=== PATIENT | female | born 1970 | race Caucasian/White ===

== ENCOUNTER 2017-08-31 13:49 | Emergency (ER) | payer OTHER ==
[~2017-08-31] VITALS: Ht 157.5 cm; Wt 58.0 kg
[2017-08-31] VITALS (7 sets, daily range): BP systolic 123–172; BP diastolic 74–104; PULSE 80–86; RESP 17–20; TEMP 98.8–99.7; O2SAT 97–98
[~2017-08-31 13:49] MED LIST: AMOX500T2 PO; CLON.5 PO; CYCL-36 PO; DARV PO; FLUO20SO3 PO; GABA250S PO
[2017-08-31] MEDS ORDERED: SODIUM CHLORIDE 0.9% FLUSH 10 ML FLUSH IVF PRN (14:30)
--- NOTE | 2017-08-31 14:34 | PD ---
HPI Chief Complaint: Hypertension Time Seen by Provider: 14:01 Travel History International Travel<30 days: No Contact w/Intl Traveler<30days: No Traveled to known affect area: No History of Present Illness HPI Patient 47-year-old female presents to emergency department with a burning sensation all of her body started this morning, she states that she took her blood pressure sometime after that noticed significantly elevated, she had been on blood pressure in the past but has been taken off and does not have any prescription at this time. She appears fairly anxious and has a fairly positive review of systems including chest pain shortness of breath nausea without vomiting, diarrhea, headaches. States symptoms started just prior to arrival, severe according to her, waxing and waning, context as above PFSH Past Medical History Autoimmune Disease: Yes (Lupus) Anxiety: Yes Cerebrovascular Accident: Yes (2006) Diabetes: Yes Patient Takes Glucophage: No Diminished Hearing: No Hypertension: Yes Tetanus Vaccination: Unknown Influenza Vaccination: No ?: Not LMP: CURRENTLY SPOTTING Tubal Ligation: Yes Past Surgical History Section: Yes (times 4) Gynecologic Surgery: Yes (right ovary removal) Neurologic Surgery: Yes (fibromyalgia) Tonsillectomy: Yes Other Surgery: Yes (breast augmentation) Social History Alcohol Use: Yes (1-2 drinks weekly) Tobacco Use: No Substance Use: No Allergies-Medications (Allergen,Severity, Reaction): Coded Allergies: metoclopramide (Verified Allergy, Intermediate, "MADE ME FLIP OUT", 08/31/17 ) morphine (Unverified Allergy, Unknown, SICK, 08/31/17) Reported Meds & Prescriptions Reported Meds & Active Scripts Active Review of Systems Except as stated in HPI: all other systems reviewed are Neg Physical Exam Narrative GENERAL: Well-developed anxious but in no obvious distress. SKIN: Focused skin assessment warm/dry. HEAD: Atraumatic. Normocephalic. EYES: Pupils equal and round. No scleral icterus. No injection or drainage. ENT: No nasal bleeding or discharge. Mucous membranes pink and moist. NECK: Trachea midline. No JVD. CARDIOVASCULAR: Regular rate and rhythm. No murmur appreciated. RESPIRATORY: No accessory muscle use. Clear to auscultation. Breath sounds equal bilaterally. GASTROINTESTINAL: Abdomen soft, non-tender, nondistended. Hepatic and splenic margins not palpable. MUSCULOSKELETAL: No obvious deformities. No clubbing. No cyanosis. No edema. NEUROLOGICAL: Awake and alert. No obvious cranial nerve deficits. Motor grossly within normal limits. Normal speech. PSYCHIATRIC: Appropriate mood and affect; insight and judgment normal. Data Data Last Documented VS Vital Signs Date Time Temp Pulse Resp B/P (MAP) Pulse Ox O2 Delivery O2 Flow Rate FiO2 08/31/17 17:10 79 18 126/78 (94) 98 08/31/17 16:40 Room Air 08/31/17 15:23 98.8 Orders Orders Electrocardiogram (08/31/17 14:20) Complete Blood Count With Diff (08/31/17 14:20) Comprehensive Metabolic Panel (08/31/17 14:20) Magnesium (Mg) (08/31/17 14:20) Troponin I (08/31/17 14:20) Chest, Single Ap (08/31/17 14:20) Ecg Monitoring (08/31/17 14:20) Iv Access Insert/Monitor (08/31/17 14:20) Oximetry (08/31/17 14:20) Oxygen Administration (08/31/17 14:20) Sodium Chloride 0.9% Flush (Ns Flush) (08/31/17 14:30) Thyroid Stimulating Hormone (08/31/17 14:20) Lorazepam (Ativan) (08/31/17 15:00) Ed Discharge Order (08/31/17 15:51) Labs Laboratory Tests Test 08/31/17 14:40 White Blood Count 7.1 TH/MM3 Red Blood Count 4.70 MIL/MM3 Hemoglobin 14.7 GM/DL Hematocrit 45.5 % Mean Corpuscular Volume 96.9 FL Mean Corpuscular Hemoglobin 31.3 PG Mean Corpuscular Hemoglobin Concent 32.3 % Red Cell Distribution Width 12.1 % Platelet Count 409 TH/MM3 Mean Platelet Volume 6.4 FL Neutrophils (%) (Auto) 61.9 % Lymphocytes (%) (Auto) 29.3 % Monocytes (%) (Auto) 6.3 % Eosinophils (%) (Auto) 0.8 % Basophils (%) (Auto) 1.7 % Neutrophils # (Auto) 4.4 TH/MM3 Lymphocytes # (Auto) 2.1 TH/MM3 Monocytes # (Auto) 0.4 TH/MM3 Eosinophils # (Auto) 0.1 TH/MM3 Basophils # (Auto) 0.1 TH/MM3 CBC Comment DIFF FINAL Differential Comment Blood Urea Nitrogen 10 MG/DL Creatinine 0.65 MG/DL Random Glucose 101 MG/DL Total Protein 8.9 GM/DL Albumin 4.3 GM/DL Calcium Level 8.9 MG/DL Magnesium Level 2.3 MG/DL Alkaline Phosphatase 90 U/L Aspartate Amino Transf (AST/SGOT) 58 U/L Alanine Aminotransferase (ALT/SGPT) 41 U/L Total Bilirubin 0.6 MG/DL Sodium Level 132 MEQ/L Potassium Level 3.9 MEQ/L Chloride Level 98 MEQ/L Carbon Dioxide Level 26.2 MEQ/L Anion Gap 8 MEQ/L Estimat Glomerular Filtration Rate 98 ML/MIN Troponin I LESS THAN 0.02 NG/ML Thyroid Stimulating Hormone 3rd Gen 1.770 uIU/ML MDM Medical Decision Making Medical Screen Exam Complete: Yes Emergency Medical Condition: Yes Differential Diagnosis ACS seems unlikely [place] unlikely, hyperthyroidism, anxiety, elevated blood pressure, Narrative Course Patient 47-year-old female does have a history of anxiety prior to arrival, laboratory evaluation reassuring, she was given Ativan and after a time her blood pressure completely normalized. Just prior to discharge she states his symptoms started happening again was reassessed and appears to be in no obvious distress. Whatever the cause for her symptoms I do not appreciate a medical emergency in this patient, she is low risk for ACS and I think she is stable for discharge to follow-up with her primary care physician. Diagnosis Primary Impression: Elevated blood pressure reading Additional Impression: Anxiety Additional Instructions: You had elevated blood pressure to 170 systolic, your blood pressure completely normalized with Ativan. Recommend follow-up with your regular physician for further options. No indication to further lower your blood pressure here per Disposition: 01 DISCHARGE HOME Condition: Stable Akbar Fernandez MD Aug 31, 2017 14:34
[2017-08-31] MEDS ORDERED: LORazepam 0.5 MG TAB PO ONE (15:00)
[2017-08-31 15:02] LABS: AUTOMATED NEUTROPHIL # 4.4 TH/MM3 (1.8-7.7); BASOPHIL # 0.1 TH/MM3 (0-0.2); BASOPHIL % 1.7 % (0.0-2.0); EOSINOPHIL # 0.1 TH/MM3 (0-0.4); EOSINOPHIL % 0.8 % (0.0-4.0); HEMATOCRIT 45.5 % (35.0-46.0); HEMOGLOBIN 14.7 GM/DL (11.6-15.3); LYMPH % 29.3 % (9.0-44.0); LYMPHOCYTE # 2.1 TH/MM3 (1.0-4.8); MEAN CELL VOLUME 96.9 FL (80.0-100.0); MEAN CORPUSCULAR HEMOGLOBIN 31.3 PG (27.0-34.0); MEAN CORPUSCULAR HGB CONC 32.3 % (32.0-36.0); MEAN PLATELET VOLUME 6.4 FL (7.0-11.0); MONO % 6.3 % (0.0-8.0); MONOCYTE # 0.4 TH/MM3 (0-0.9); NEUT % 61.9 % (16.0-70.0); PLATELET COUNT 409 TH/MM3 (150-450); RED CELL DISTRIBUTION WIDTH 12.1 % (11.6-17.2); WHITE BLOOD COUNT 7.1 TH/MM3 (4.0-11.0)
[2017-08-31 15:15] LABS: CHLORIDE 98 MEQ/L (98-107); SODIUM (NA) 132 MEQ/L (136-145)
[2017-08-31 15:18] LABS: ALBUMIN 4.3 GM/DL (3.4-5.0); BICARBONATE 26.2 MEQ/L (21.0-32.0); CALCIUM 8.9 MG/DL (8.5-10.1)
[2017-08-31 15:19] LABS: BLOOD UREA NITROGEN 10 MG/DL (7-18); GLUCOSE,RANDOM 101 MG/DL (74-106); MAGNESIUM 2.3 MG/DL (1.5-2.5)
[2017-08-31 15:21] LABS: ALT (GPT) 41 U/L (10-53)
[2017-08-31 15:22] LABS: AST (GOT) 58 U/L (15-37); CREATININE 0.65 MG/DL (0.50-1.00); GLOMERULAR FILTRATION RATE 98 ML/MIN (>89)
[2017-08-31 15:23] LABS: TOTAL BILIRUBIN ADULT 0.6 MG/DL (0.2-1.0); TOTAL PROTEIN 8.9 GM/DL (6.4-8.2)
[2017-08-31 15:24] LABS: ALKALINE PHOSPHATASE 90 U/L (45-117)
[2017-08-31 15:27] LABS: TROPONIN I LESS THAN 0.02 NG/ML (0.02-0.05)
--- NOTE | 2017-08-31 16:18 | RADRPT ---
EXAM DATE/TIME: 08/31/2017 14:23 [facility] COMPARISON: No previous studies available for comparison. INDICATIONS : Elevated blood pressure. Nausea. Dizziness. Sweats. Chest tightness. MEDICAL HISTORY : Lupus. CVA. Fibromyalgia. Diabetic. SURGICAL HISTORY : Tonsillectomy. section. Tubal ligation. Hypertension. Breast augmentation. ENCOUNTER: Initial ACUITY: 1 day PAIN SCORE: 6/10 LOCATION: chest FINDINGS: A single view of the chest demonstrates the lungs to be symmetrically aerated without evidence of mas s, infiltrate or effusion. The cardiomediastinal contours are unremarkable. Osseous structures are intact. CONCLUSION: No acute disease. Joshua Guillermo MD on August 31, 2017 at 16:16 Board Certified Radiologist. This report was verified electronically.
--- NOTE | 2017-09-01 14:56 | EKG ---
Date Performed: 08/31/2017 Time Performed: 14:50:52 PTAGE: 47 years EKG: Sinus rhythm WITH SINUS ARRHYTHMIA Since previous tracing, no significant change noted NORMAL ECG PREVIOUS TRACING : 11/21/2000 22.29 DOCTOR: Carina May Interpretating Date/Time 09/01/2017 14:54:05
== END 2017-08-31 17:14 | disposition home or self-care (01) ==
LOC: PHED 13:49
DX: I10 Essential (primary) hypertension (principal); E11.9 Type 2 diabetes mellitus without complications; M79.7 Fibromyalgia; M32.9 Systemic lupus erythematosus, unspecified; Z86.73 Personal history of transient ischemic attack (TIA), and cerebral infarction without residual deficits; Z88.5 Allergy status to narcotic agent; Z88.8 Allergy status to other drugs, medicaments and biological substances
CPT/HCPCS: 71045; 80053; 83735; 84443; 84484; 85025; 93005; 99285

== ENCOUNTER 2017-09-13 13:51 | Emergency (ER) | payer OTHER ==
[~2017-09-13] VITALS: Ht 157.5 cm; Wt 58.0 kg
[2017-09-13 14:07] VITALS: BP 151/83; PULSE 86; RESP 16; TEMP 98.2; O2SAT 98
[2017-09-13] MEDS ORDERED: PROP10TA6 PO (14:15)
[2017-09-13] MEDS ORDERED: CARI1CAP PO (14:15)
--- NOTE | 2017-09-13 14:21 | PD ---
HPI Chief Complaint: Laceration/Skin Injury Time Seen by Provider: 14:16 Travel History International Travel<30 days: No Contact w/Intl Traveler<30days: No Traveled to known affect area: No History of Present Illness HPI Patient comes to the emergency department complaining of a laceration to her left thumb that occurred shortly prior to arrival. Patient contact her primary care office was told to come to the ER. Patient uncertain of her last tetanus shot. Patient reports pain around site of the laceration that is burning-like in nature without radiation. Patient reports she broke flower vase causing a laceration. Patient denies doing anything else for prior to coming to the emergency department. Patient is right-hand dominant. Denies anything making symptoms better or worse. PFSH Past Medical History Autoimmune Disease: Yes (Lupus) Anxiety: Yes Cerebrovascular Accident: Yes (2007) Diabetes: Yes Diminished Hearing: No Hypertension: Yes Tetanus Vaccination: Unknown ?: Not Tubal Ligation: Yes Past Surgical History Section: Yes (times 4) Gynecologic Surgery: Yes (right ovary removal) Neurologic Surgery: Yes (fibromyalgia) Tonsillectomy: Yes Other Surgery: Yes (breast augmentation) Social History Alcohol Use: Yes (1-2 drinks weekly) Tobacco Use: No Substance Use: No Allergies-Medications (Allergen,Severity, Reaction): Coded Allergies: metoclopramide (Verified Allergy, Intermediate, "MADE ME FLIP OUT", ) morphine (Unverified Allergy, Unknown, SICK, 09/13/17) Reported Meds & Prescriptions Reported Meds & Active Scripts Active Reported Vraylar (Cariprazine) 1.5 Mg Cap 1.5 Mg PO DAILY Propranolol (Propranolol HCl) 10 Mg Tab 10 Mg PO Q12HR Review of Systems Except as stated in HPI: all other systems reviewed are Neg Physical Exam Narrative GENERAL: Well-developed, well nourished, in no acute distress, and non-ill appearing. SKIN: Small laceration noted over the palmar aspect of left thumb distal phalanx. No foreign body noted. No crepitus. Full range of motion with flexion, extension, abduction, adduction, and opposition. Neurovascular intact distally. HEAD: Atraumatic. Normocephalic. EYES: Pupils equal and round. EOMI. No scleral icterus. No injection or drainage. ENT: No nasal bleeding or discharge. Mucous membranes pink and moist. NECK: Trachea midline. Supple. No nuclear rigidity. CARDIOVASCULAR: Capillary refill less than 2 seconds. RESPIRATORY: No accessory muscle use. No respiratory distress. MUSCULOSKELETAL: No obvious deformities. No clubbing. No cyanosis. No edema. Full range of motion. NEUROLOGICAL: Awake and alert. No obvious cranial nerve deficits. Motor grossly within normal limits. Normal speech. PSYCHIATRIC: Appropriate mood and affect; insight and judgment normal. Data Data Last Documented VS Vital Signs Date Time Temp Pulse Resp B/P (MAP) Pulse Ox O2 Delivery O2 Flow Rate FiO2 09/13/17 14:07 98.2 86 16 151/83 (105) 98 Orders Orders Bupivacaine Pf 0.5% Inj (Marcaine Pf 0.5 (09/13/17 14:30) Lidocaine Pf 1% Inj (Xylocaine-Mpf 1% In (09/13/17 14:30) Tetanus/Diphtheria Tox Adult (Tetanus/Di (09/13/17 14:30) Ed Discharge Order (09/13/17 15:45) MDM Medical Decision Making Medical Screen Exam Complete: Yes Emergency Medical Condition: Yes Differential Diagnosis Laceration, abrasion, avulsion Narrative Course The patient suffered laceration to the thumb. There was no evidence to suggest foreign bodies. Visual and tactile exams were unremarkable without evidence of foreign body at this time. There was no evidence of neurovascular injury. The patient had a normal distal vascular exam, and had full normal motor and sensory exams. There was also no evidence or tendon injury, with normal distal full range of motions, flexion, extension, abduction, adduction and opponens. There was no evidence of local joint space involvement at this time. The patient was irrigated with copious sterile normal saline and primary repair was performed. Please see procedure note. The patient was given signs and symptom warnings for infection, such as increasing pain, redness, swelling, associated heat, pus or fever. The patient was warned of possible unseen foreign body and instructed to return immediately if signs or symptoms develop. The patient was given instructions for timely follow up. The patient agreed with plan of care. Patient in no obvious distress upon re-evaluation. Any questions/concerns in reference to patient diagnosis/condition discussed and clarified prior to patient's discharge. Reinforced sheer importance of close follow up with patient 's primary physician or primary care clinic. Instructed patient to return to ED immediately, if symptoms return/worsen. Patient showed understanding of above instructions. Further instructions and recommendations were detailed in discharge paperwork. Patient ambulated without difficulty out of ED at discharge. Procedures Procedure Narrative LACERATION REPAIR LOCATION: Left thumb palmar aspect distal phalanx LENGTH: Approximately 2 cm in total length NUMBER OF STITCHES/CELSO: 4 simple interrupted REPAIR: Verbal consent was obtained. The area of the laceration was cleaned and prepped. Digital block was performed using mixture of lidocaine without epi and Marcaine without epi. The wound was copiously irrigated and explored without evidence of foreign body, bony involvement, ligament injury, tendon injury, or neurovascular injury. The wound was closed using 5-0 Vicryl. This was a single layer repair. A sterile dressing was applied by nurse. The patient was advised to keep the affected area as clean and dry as possible using soap and water. There were no complications. Patient tolerated the procedure well. Diagnosis Primary Impression: Finger laceration Qualified Codes: S61.012A - Laceration without foreign body of left thumb without damage to nail, initial encounter Patient Instructions: Care For Your Absorbable Stitches (DC), Finger Laceration (ED), General Instructions Additional Instructions: Follow-up with your primary care physician next week for reevaluation. Keep wound dry and clean as possible using soap and water. Use Neosporin to promote healing. Do not soak or submerge wound. Return to the emergency department if symptoms get worse. Disposition: 01 DISCHARGE HOME Condition: Stable Clay Dudley Sep 13, 2017 14:21
[2017-09-13] MEDS ORDERED: BUPIVACAINE HCL PF 0.5% 10 ML VIAL INFIL ONE (14:30)
[2017-09-13] MEDS ORDERED: TETANUS/DIPHTHERIA TOXOID ADULT 0.5 ML VIAL IM ONE (14:30)
[2017-09-13] MEDS ORDERED: LIDOCAINE HCL 1% PF 30 ML VIAL INFIL ONE (14:30)
== END 2017-09-13 15:58 | disposition home or self-care (01) ==
LOC: PHEFT 13:51
DX: S61.012A Laceration without foreign body of left thumb without damage to nail, initial encounter (principal); Z23 Encounter for immunization; M32.9 Systemic lupus erythematosus, unspecified; E11.9 Type 2 diabetes mellitus without complications; I10 Essential (primary) hypertension; W25.XXXA Contact with sharp glass, initial encounter; Z86.73 Personal history of transient ischemic attack (TIA), and cerebral infarction without residual deficits; Z88.5 Allergy status to narcotic agent; Z88.8 Allergy status to other drugs, medicaments and biological substances
CPT/HCPCS: 12001; 90471; 90714